=== PATIENT | female | born 1990 | race Caucasian/White ===

== ENCOUNTER 2022-12-07 14:28 | Inpatient (IN) | payer MEDICAID ==
[2022-12-07] MEDS ORDERED: Tranexamic Acid 1,000 MG in Sodium Chloride 0.9% 100 ML IV PRN (14:58)
[2022-12-07] MEDS ORDERED: Misoprostol 200 MCG Tab PO PRN (14:58)
[2022-12-07] MEDS ORDERED: Terbutaline 1 MG/ML SDV SUBCUT PRN (14:58)
[2022-12-07] MEDS ORDERED: Sodium Chloride 0.9% 20 ML SDV IV PRN (14:58)
[2022-12-07] MEDS ORDERED: Ondansetron 4 MG/2 ML SDV IVPUSH PRN (14:58)
[2022-12-07] MEDS ORDERED: Carboprost Tromethamine 250 MCG/1 ML Amp IM PRN (14:58)
[2022-12-07] MEDS ORDERED: Sodium Chloride 0.9% 10 ML Syringe FLUSH PRN (14:58)
[2022-12-07] MEDS ORDERED: Sodium Chloride 0.9% 2.5 ML Syringe FLUSH PRN (14:58)
[2022-12-07] MEDS ORDERED: Lidocaine 1% 50 ML MDV INJECT PRN (14:58)
[2022-12-07] MEDS ORDERED: Methylergonovine 0.2 MG/1 ML Amp IM PRN (14:58)
[2022-12-07] MEDS ORDERED: Butorphanol 1 MG/ML SDV IVPUSH PRN (14:58)
[2022-12-07] MEDS ORDERED: Water For Irrigation,Sterile 1,000 ML Container IRR PRN (14:58)
[2022-12-07] MEDS ORDERED: Oxytocin/0.9 % Sodium Chloride 30 UNIT/500 ML BAG IV SCH ×2 (15:00)
[2022-12-07] MEDS ORDERED: Misoprostol 25 MCG (1/4 of 100 MCG) Tab VAG PRN (15:15)
[2022-12-07] MEDS ORDERED: ePHEDrine 50 MG/ML SDV IVPUSH PRN ×2 (18:07)
[2022-12-07] MEDS ORDERED: Phenylephrine HCl In 0.9% NaCl 1 MG/10 ML Vial IVPUSH PRN (18:07)
[2022-12-07] MEDS ORDERED: Phenylephrine HCl In 0.9% NaCl 1 MG/10 ML Vial IVPUSH SCH (18:15)
[2022-12-07] MEDS ORDERED: Ropivacaine HCl/PF 400 MG in Premix Bag 1 BAG EPIDUR SCH (18:15)
[2022-12-07] MEDS: Misoprostol 25 MCG (1/4 of 100 MCG) Tab VAG PRN (19:40)
[2022-12-08] MEDS: Lactated Ringers 1,000 ML IV SCH ×3 (00:47→14:53)
[2022-12-08] MEDS: Misoprostol 25 MCG (1/4 of 100 MCG) Tab VAG PRN (00:54)
[2022-12-08] MEDS ORDERED: Ondansetron 4 MG/2 ML SDV ONE ×2 (16:08→16:13)
[2022-12-08] MEDS ORDERED: ceFAZolin 1 GM Vial ONE (16:13)
[2022-12-08] MEDS ORDERED: Oxytocin 10 Units/1 ML SDV ONE (16:13)
[2022-12-08] MEDS ORDERED: Bupivacaine 0.5% 10 ML SDV ONE (16:13)
[2022-12-08] MEDS ORDERED: Dexamethasone 4 MG/ML 5 ML MDV ONE (16:13)
[2022-12-08] MEDS ORDERED: Ropivacaine 0.5% 5 MG/ML 30 ML SDV ONE (16:13)
[2022-12-08] MEDS ORDERED: Morphine PF 10 MG/10 ML SDV ONE (16:22)
[2022-12-08] MEDS ORDERED: Naloxone 0.4 MG/ML SDV IVPUSH PRN (16:40)
[2022-12-08] MEDS ORDERED: diphenhydrAMINE 50 MG/ML SDV IVPUSH PRN ×2 (16:40→17:26)
[2022-12-08] MEDS ORDERED: ePHEDrine 50 MG/ML SDV IVPUSH PRN (16:40)
[2022-12-08] MEDS ORDERED: fentaNYL 100 MCG/2 ML SDV IVPUSH PRN (16:40)
[2022-12-08] MEDS ORDERED: fentaNYL 50 MCG/ML SDV IVPUSH PRN (16:40)
[2022-12-08] MEDS ORDERED: Morphine 2 MG/ML SYRINGE IVPUSH PRN (16:40)
[2022-12-08] MEDS ORDERED: Albuterol 0.083% 2.5 MG/3 ML Neb Soln NEB PRN (16:40)
[2022-12-08] MEDS ORDERED: Metoclopramide 10 MG/2 ML SDV IVPUSH PRN (16:40)
[2022-12-08] MEDS ORDERED: HYDROmorphone 1 MG/ML Syringe IVPUSH PRN (16:40)
[2022-12-08] MEDS ORDERED: Ondansetron 4 MG/2 ML SDV IVPUSH PRN ×2 (16:40)
[2022-12-08] MEDS ORDERED: Ketorolac 30 MG/ML SDV ONE ×2 (16:43→16:57)
[2022-12-08] MEDS ORDERED: Phenylephrine HCl In 0.9% NaCl 1 MG/10 ML Vial IVPUSH SCH (16:45)
[2022-12-08] MEDS ORDERED: Ibuprofen 800 MG Tab PO PRN (17:26)
[2022-12-08] MEDS ORDERED: Acetaminophen/oxyCODONE 325-5 MG Tab PO PRN ×2 (17:26)
[2022-12-08] MEDS ORDERED: Lanolin 100% Cream 7 GM Tube TOP PRN (17:26)
[2022-12-08] MEDS ORDERED: Bisacodyl 10 MG Supp RECTAL PRN (17:26)
[2022-12-08] MEDS ORDERED: Misoprostol 200 MCG Tab RECTAL PRN (17:26)
[2022-12-08] MEDS: Ketorolac 30 MG/ML SDV IVPUSH SCH ×2 (18:19→22:30)
[2022-12-08] MEDS ORDERED: Acetaminophen 1,000 MG in Premix Bag 1 BAG IV PRN ×2 (21:00→23:30)
[2022-12-08] MEDS: Docusate Sodium 100 MG Cap PO SCH (22:21)
[2022-12-09] MEDS ORDERED: Furosemide 20 MG Tab PO ONE (02:06)
[2022-12-09] MEDS: Lactated Ringers 1,000 ML IV SCH ×2 (02:16→09:20)
[2022-12-09] MEDS: Ketorolac 30 MG/ML SDV IVPUSH SCH ×3 (05:37→17:47)
[2022-12-09 06:32] LABS: CARBON DIOXIDE,CO2 24.7 mmol/L (21.0-32.0); POTASSIUM,K 4.2 mmol/L (3.5-5.1)
[2022-12-09] MEDS ORDERED: Phenylephrine 1% 10 MG/ML SDV ONE (08:14)
[2022-12-09] MEDS: Docusate Sodium 100 MG Cap PO SCH (09:12)
[2022-12-10] MEDS: Docusate Sodium 100 MG Cap PO SCH ×4 (00:44→21:30)
[2022-12-10] MEDS: Acetaminophen/oxyCODONE 325-5 MG Tab PO PRN ×4 (00:51→21:30)
[2022-12-11] MEDS: Acetaminophen/oxyCODONE 325-5 MG Tab PO PRN ×2 (04:11→11:05)
[2022-12-11] MEDS ORDERED: Measles, Mumps & Rubella Vaccine 0.5 ML SDV SUBCUT ONE (10:43)
[2022-12-11] MEDS: Docusate Sodium 100 MG Cap PO SCH (11:49)
== END 2022-12-11 11:40 | disposition home or self-care (01) | DRG 786 ==
LOC: MW.OB 14:28 → OBSVTOIN 12-08 16:33 → MW.OB 12-08 22:06
PROVIDERS: ADMIT Obstetrics & Gynecology; ATTEND Obstetrics & Gynecology
PROC: 10D00Z1 Extraction of Products of Conception, Low, Open Approach (ICD-10-PCS; principal; 2022-12-08)
PROC: 10907ZC Drainage of Amniotic Fluid, Therapeutic from Products of Conception, Via Natural or Artificial Opening (ICD-10-PCS; 2022-12-08)
PROC: 3E0P7VZ Introduction of Hormone into Female Reproductive, Via Natural or Artificial Opening (ICD-10-PCS; 2022-12-08)
PROC: 3E0R3BZ Introduction of Anesthetic Agent into Spinal Canal, Percutaneous Approach (ICD-10-PCS; 2022-12-08)
PROC: 00HU33Z Insertion of Infusion Device into Spinal Canal, Percutaneous Approach (ICD-10-PCS; 2022-12-08)
PROC: 3E0134Z Introduction of Serum, Toxoid and Vaccine into Subcutaneous Tissue, Percutaneous Approach (ICD-10-PCS; 2022-12-11)
DX: O48.0 Post-term pregnancy (principal); U07.1 COVID-19; O98.52 Other viral diseases complicating childbirth; Z37.0 Single live birth; O62.1 Secondary uterine inertia; O76 Abnormality in fetal heart rate and rhythm complicating labor and delivery; O77.0 Labor and delivery complicated by meconium in amniotic fluid; Z86.16 Personal history of COVID-19; Z3A.41 41 weeks gestation of pregnancy; Z23 Encounter for immunization
CPT/HCPCS: 01967; 01968; 36415; 51702; 59025; 64488; 80053; 85027; 86592; 86850; 86900; 86901; 90471; 90707; A9270-GY; J0131; J0595; J0690; J1100; J1885; J2274; J2370; J2405; J2590; J2795; J3490; J7120; U0002

== ENCOUNTER 2024-07-27 10:03 | Emergency (ER) | payer BC, MEDICAID ==
[2024-07-27 11:05] LABS: BASOPHILS ABSOLUTE AUTO 0.02 K/uL (0.00-0.20); BASOPHILS PERCENT AUTO 0.4 % (0.0-1.0); EOSINOPHILS ABSOLUTE AUTO 0.11 K/uL (0.00-0.45); EOSINOPHILS PERCENT AUTO 2.2 % (0.0-6.0); HEMATOCRIT 38.8 % (37.0-47.0); HEMOGLOBIN 12.9 g/dL (12.0-16.0); IMMATURE GRAN ABSOLUTE AUTO 0.01 K/uL (0.00-0.05); IMMATURE GRAN PERCENT AUTO 0.2 % (0.0-0.4); LYMPHOCYTES ABSOLUTE AUTO 1.77 K/uL (1.00-4.80); LYMPHOCYTES PERCENT AUTO 36.2 % (24.0-44.0); MEAN CORPUSCULAR HEMOGLOBIN 29.3 pg (28.0-32.0); MEAN CORPUSCULAR HGB CONC 33.2 g/dL (32.0-36.0); MEAN CORPUSCULAR VOLUME 88.2 fL (83.0-99.0); MEAN PLATELET VOLUME 8.5 fL (9.4-12.3); MONOCYTES ABSOLUTE AUTO 0.28 K/uL (0.00-0.80); MONOCYTES PERCENT AUTO 5.7 % (0.0-8.0); NEUTROPHILS PERCENT AUTO 55.3 % (41.0-71.0); PLATELET COUNT,PLT 197 K/uL (150-400); WHITE BLOOD CELL COUNT,WBC 4.89 K/uL (3.9-11.3)
[2024-07-27 11:44] LABS: A/G RATIO 1.1 (0.9-1.6); ALBUMIN 4.1 g/dL (3.4-5.0); BILIRUBIN TOTAL 0.4 mg/dL (0.2-1.0); CALCIUM 8.9 mg/dL (8.5-10.1); CARBON DIOXIDE,CO2 28.8 mmol/L (21.0-32.0); CREATININE 0.6 mg/dL (0.6-1.0); EST CRCL DRUG DOSING (CG) 124.85 mL/min; POTASSIUM,K 3.8 mmol/L (3.5-5.1); PROTEIN TOTAL,TP 7.7 g/dL (6.4-8.2)
[2024-07-27 12:26] LABS: APPEARANCE,URINE SLT CLOUDY; BILIRUBIN,URINE NEGATIVE (NEGATIVE); COLOR,URINE YELLOW; GLUCOSE,URINE NEGATIVE (NEGATIVE); KETONES,URINE NEGATIVE (NEGATIVE); LEUKOCYTE ESTERASE,URINE NEGATIVE (NEGATIVE); NITRITE,URINE NEGATIVE (NEGATIVE); OCCULT BLOOD,URINE LARGE (NEGATIVE); PH,URINE 7.5 (5.0-8.0); PROTEIN,URINE NEGATIVE (NEGATIVE); UROBILINOGEN,URINE 0.2 EU/dL (<2.0)
[2024-07-27 12:39] LABS: BACTERIA,URINE FEW (NEGATIVE); EPITHELIAL CELLS,URINE MANY (NONE-FEW); WBC,URINE 0-2 (0-5/HPF)
== END 2024-07-27 12:25 | disposition home or self-care (01) ==
LOC: MW.ED 10:03
DX: O20.9 Hemorrhage in early pregnancy, unspecified (principal); Z75.8 Other problems related to medical facilities and other health care; Z3A.01 Less than 8 weeks gestation of pregnancy
CPT/HCPCS: 36415; 76817; 76817-26; 80053; 81001; 84702; 85025; 86900; 86901; 99284